=== PATIENT | female | born 1950 | race Caucasian/White ===

== ENCOUNTER 2021-12-04 20:06 | Emergency (ER) | payer MEDICARE, OTHER ==
[~2021-12-04 20:06] MED LIST: ASPIRIN CHEWABL81 MG PO; ATENOLOL25 MG PO; COLACE100 MG PO; DIGITEK125 MCG PO; LEVAQUIN500 MG PO; LIPITOR20 MG PO; LYRICA 50MG CAP50 MG PO; NORVASC5 MG PO; OXYCODONE-ACET1 EACH PO; PERCOCET 7.5/321 TAB PO; PRINIVIL10 MG PO
[2021-12-04 20:55] LABS: BASOPHIL 0.9 % (0-2); EOSINOPHIL 1.1 % (0-7); HCT 44.2 % (37.0-47.0); LYMPHOCYTE 22.2 % (15-48); MCH 29.4 pg (25.0-31.0); MCHC 33.9 g/dL (32.0-36.0); MCV 86.5 fL (78.0-100.0); MONOCYTE 10.9 % (0-12); MPV 9.5 fL (6.0-9.5); NEUTROPHIL 64.4 % (41-80); NRBC 0; PLT 243 K/uL (150-400); RBC 5.11 M/uL (4.20-5.40); WBC 6.5 K/uL (4.0-10.5)
[2021-12-04 21:10] LABS: INR 2.1 (0.9-1.2); PROTHROMBIN TIME 22.7 SECONDS (11.8-13.4)
[2021-12-04 21:21] LABS: ALBUMIN 3.3 g/dL (3.4-5.0); BILIRUBIN - TOTAL 2.2 mg/dL (0.2-1.0); BUN/CREAT RATIO (CALC) 14.6 RATIO; CREATININE 0.96 mg/dL (0.51-0.95); GLOBULIN (CALCULATION) 3.8 g/dL; POTASSIUM 3.4 mmol/L (3.5-5.1); TOTAL PROTEIN 7.1 g/dL (6.4-8.2)
[2021-12-04] MEDS ORDERED: ZESTRIL5 MG PO (23:55)
[2021-12-06] MEDS ORDERED: XARELTO10 MG PO (18:33)
[2021-12-07] MEDS ORDERED: TRIAMTERENE-HC1 EAC1 PO (12:54)
[2021-12-07] MEDS ORDERED: BACTRIM DS TAB1 EACH PO (12:54)
[2021-12-07] MEDS ORDERED: PRINIVIL20 MG PO (12:54)
[2021-12-07] MEDS ORDERED: NORVASC5 MG PO (12:54)
== END 2021-12-05 00:08 | disposition home or self-care (01) ==
LOC: FER 20:06
PROVIDERS: Emergency Medicine
DX: R51.9 Headache, unspecified (principal); I10 Essential (primary) hypertension; I25.10 Atherosclerotic heart disease of native coronary artery without angina pectoris; E78.5 Hyperlipidemia, unspecified; Z79.01 Long term (current) use of anticoagulants; Z79.899 Other long term (current) drug therapy
CPT/HCPCS: 36415; 70450; 80053; 84484; 85025; 85610; 93005; J3490

== ENCOUNTER 2022-03-15 16:43 | Emergency (ER) | payer MEDICARE, OTHER ==
[~2022-03-15 16:43] MED LIST changes: +BACTRIM DS TAB1 EACH PO; +PRINIVIL20 MG PO; +TRIAMTERENE-HC1 EAC1 PO; +XARELTO10 MG PO; +ZESTRIL5 MG PO
[2022-03-15 17:01] LABS: EOSINOPHIL 0.5 % (0-7); HCT 42.1 % (37.0-47.0); HGB 14.8 g/dl (12.5-16.0); LYMPHOCYTE 17.5 % (15-48); MCH 30.2 pg (25.0-31.0); MCHC 35.2 g/dL (32.0-36.0); MCV 85.9 fL (78.0-100.0); MONOCYTE 10.2 % (0-12); NEUTROPHIL 70.4 % (41-80); NRBC 0; PLT 308 K/uL (150-400); RDW 13.3 % (11.5-14.0); WBC 8.3 K/uL (4.0-10.5)
[2022-03-15 17:20] LABS: ALBUMIN 3.6 g/dL (3.4-5.0); BILIRUBIN - TOTAL 2.2 mg/dL (0.2-1.0); BUN/CREAT RATIO (CALC) 18.9 RATIO; CREATININE 1.32 mg/dL (0.51-0.95); POTASSIUM 4.4 mmol/L (3.5-5.1); TOTAL PROTEIN 7.6 g/dL (6.4-8.2)
[2022-03-15 17:39] LABS: INR 1.53 (0.9-1.2); PROTHROMBIN TIME 17.9 SECONDS (11.9-13.9); PTT 35.5 SECONDS (24.9-34.6)
[2022-03-15] MEDS ORDERED: AMBIEN5 MG PO (18:48)
== END 2022-03-15 19:50 | disposition home or self-care (01) ==
LOC: FER 16:43
PROVIDERS: Emergency Medicine
DX: I11.0 Hypertensive heart disease with heart failure (principal); I50.9 Heart failure, unspecified; G47.00 Insomnia, unspecified; I25.2 Old myocardial infarction; Z95.1 Presence of aortocoronary bypass graft; Z95.0 Presence of cardiac pacemaker
CPT/HCPCS: 36415; 71045; 80053; 83880; 84484; 85025; 85610; 85730; 93005; J2270; J2405; J7040

== ENCOUNTER 2022-03-17 17:39 | Emergency (ER) | payer MEDICARE, OTHER ==
[~2022-03-17 17:39] MED LIST changes: +AMBIEN5 MG PO
[2022-03-17 19:37] LABS: BASOPHIL 0.6 % (0-2); EOSINOPHIL 0.3 % (0-7); HCT 42.3 % (37.0-47.0); HGB 14.8 g/dl (12.5-16.0); LYMPHOCYTE 21.1 % (15-48); MCH 30.3 pg (25.0-31.0); MCV 86.7 fL (78.0-100.0); MONOCYTE 11.8 % (0-12); NEUTROPHIL 65.9 % (41-80); NRBC 0; PLT 288 K/uL (150-400); RBC 4.88 M/uL (4.20-5.40); RDW 13.4 % (11.5-14.0); WBC 7.9 K/uL (4.0-10.5)
[2022-03-17 19:56] LABS: ALBUMIN 3.7 g/dL (3.4-5.0); BILIRUBIN - TOTAL 3.1 mg/dL (0.2-1.0); BUN/CREAT RATIO (CALC) 15.2 RATIO; CREATININE 1.38 mg/dL (0.51-0.95); GLOBULIN (CALCULATION) 3.9 g/dL; POTASSIUM 3.9 mmol/L (3.5-5.1); TOTAL PROTEIN 7.6 g/dL (6.4-8.2)
[2022-03-17] MEDS ORDERED: NORCO 5-325 TA1 EACH PO (21:28)
== END 2022-03-17 22:12 | disposition home or self-care (01) ==
LOC: FER 17:39
PROVIDERS: Emergency Medicine
DX: M79.605 Pain in left leg (principal); M79.604 Pain in right leg; R07.89 Other chest pain; I25.10 Atherosclerotic heart disease of native coronary artery without angina pectoris; Z79.01 Long term (current) use of anticoagulants; Z95.1 Presence of aortocoronary bypass graft; X58.XXXA Exposure to other specified factors, initial encounter; Y93.89 Activity, other specified
CPT/HCPCS: 36415; 80053; 84484; 85025; 93005; 93970; J2270; J2405; Q0169